=== PATIENT | male | born 2000 | race Caucasian/White ===

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

== ENCOUNTER 2021-11-25 17:27 | Emergency (ER) | payer OTHER ==
[~2021-11-25] VITALS: Ht 182.9 cm; Wt 77.3 kg
[2021-11-25 18:00] LABS: HEMATOCRIT 47.9 % (42.0-52.0); HEMOGLOBIN 15.8 g/dl (13.5-17.5); MEAN CORPUSCULAR HEMOGLOBIN 30.4 pg (27.0-33.0); MEAN CORPUSCULAR VOLUME 92.3 fl (80.0-96.0); PLATELET COUNT, AUTOMATED 233 10^3/uL (150-450); RED BLOOD COUNT 5.19 10^6/uL (4.30-6.10); WHITE BLOOD COUNT 6.2 10^3/uL (4.0-10.0)
[2021-11-25 18:15] LABS: AMPHETAMINES LEVEL URINE NEGATIVE (NEGATIVE); BARBITURATES URINE NEGATIVE (NEGATIVE); BENZODIAZEPINES URINE NEGATIVE (NEGATIVE); CANNABINOIDS URINE NEGATIVE (NEGATIVE); COCAINE METABOLITE URINE NEGATIVE (NEGATIVE); METHADONE URINE NEGATIVE (NEGATIVE); OPIATES URINE NEGATIVE (NEGATIVE); PHENCYCLIDINE URINE NEGATIVE (NEGATIVE)
[2021-11-25 18:30] LABS: ACETAMINOPHEN LEVEL < 2.0 UG/ML (10.0-30.0); ALBUMIN 4.1 GM/DL (3.2-5.2); ALT/SGPT 20 U/L (12-78); BILIRUBIN,DIRECT 0.1 MG/DL (0.0-0.2); BILIRUBIN,TOTAL 0.3 MG/DL (0.2-1.0); BLOOD UREA NITROGEN 10 MG/DL (7-18); CARBON DIOXIDE LEVEL 33 MEQ/L (21-32); CHLORIDE LEVEL 110 MEQ/L (98-107); CREATININE FOR GFR 0.93 MG/DL (0.70-1.30); ETHYL ALCOHOL (ETHANOL) < 0.003 % (0.000-0.010); GLUCOSE, FASTING 74 MG/DL (70-100); POTASSIUM SERUM 4.4 MEQ/L (3.5-5.1); SALICYLATE LEVEL < 1.7 MG/DL (5.0-30.0); SODIUM LEVEL 144 MEQ/L (136-145); TOTAL PROTEIN 7.6 GM/DL (6.4-8.2)
[2021-11-25] MEDS ORDERED: HOME MED LIST COMPLETE! XX SCH (18:45)
[2021-11-25 19:04] LABS: RSV AMPLIFICATION NEGATIVE (NEGATIVE)
[2021-11-27 10:52] VITALS: BP 133/74
== END 2021-11-27 11:09 ==
LOC: M ED 17:27
DX: R45.851 Suicidal ideations (principal); Z87.891 Personal history of nicotine dependence; R00.1 Bradycardia, unspecified

== ENCOUNTER 2021-12-25 07:05 | Emergency (ER) | payer OTHER ==
[~2021-12-25] VITALS: Ht 185.4 cm; Wt 77.3 kg
[2021-12-25] MEDS ORDERED: TRAZ-252 PO (07:16)
[2021-12-25] MEDS ORDERED: SERT50TA29 PO (07:16)
[2021-12-25 08:36] LABS: HEMATOCRIT 47.5 % (42.0-52.0); HEMOGLOBIN 15.7 g/dl (13.5-17.5); MEAN CORPUSCULAR HEMOGLOBIN 30.2 pg (27.0-33.0); MEAN CORPUSCULAR HGB CONC 33.1 g/dl (32.0-36.5); MEAN CORPUSCULAR VOLUME 91.3 fl (80.0-96.0); PLATELET COUNT, AUTOMATED 293 10^3/uL (150-450); WHITE BLOOD COUNT 6.2 10^3/uL (4.0-10.0)
[2021-12-25 09:08] LABS: AMPHETAMINES LEVEL URINE NEGATIVE (NEGATIVE); BARBITURATES URINE NEGATIVE (NEGATIVE); BENZODIAZEPINES URINE NEGATIVE (NEGATIVE); CANNABINOIDS URINE NEGATIVE (NEGATIVE); COCAINE METABOLITE URINE NEGATIVE (NEGATIVE); METHADONE URINE NEGATIVE (NEGATIVE); OPIATES URINE NEGATIVE (NEGATIVE); PHENCYCLIDINE URINE NEGATIVE (NEGATIVE)
[2021-12-25 09:22] LABS: RSV AMPLIFICATION NEGATIVE (NEGATIVE)
[2021-12-25 09:25] LABS: ACETAMINOPHEN LEVEL < 2.0 UG/ML (10.0-30.0); ALBUMIN 3.7 GM/DL (3.2-5.2); ALT/SGPT 20 U/L (12-78); BILIRUBIN,DIRECT 0.1 MG/DL (0.0-0.2); BILIRUBIN,TOTAL 0.4 MG/DL (0.2-1.0); BLOOD UREA NITROGEN 11 MG/DL (7-18); CALCIUM LEVEL 9.4 MG/DL (8.5-10.1); CARBON DIOXIDE LEVEL 28 MEQ/L (21-32); CHLORIDE LEVEL 105 MEQ/L (98-107); CREATININE FOR GFR 0.73 MG/DL (0.70-1.30); ETHYL ALCOHOL (ETHANOL) < 0.003 % (0.000-0.010); GLUCOSE, FASTING 83 MG/DL (70-100); POTASSIUM SERUM 4.4 MEQ/L (3.5-5.1); SALICYLATE LEVEL < 1.7 MG/DL (5.0-30.0); SODIUM LEVEL 138 MEQ/L (136-145); THYROID STIMULATING HORMONE 0.452 uIU/ML (0.463-3.98); TOTAL PROTEIN 7.1 GM/DL (6.4-8.2)
[2021-12-25] MEDS ORDERED: HYDR-3363 PO (12:12)
[2021-12-25] MEDS ORDERED: HOME MED LIST COMPLETE! XX SCH (12:15)
[2021-12-25 22:53] VITALS: BP 120/63
== END 2021-12-25 23:24 ==
LOC: M ED 07:05
DX: F43.0 Acute stress reaction (principal); R00.1 Bradycardia, unspecified; F32.A Depression, unspecified; Z87.891 Personal history of nicotine dependence; Z79.899 Other long term (current) drug therapy

== ENCOUNTER 2022-01-22 07:18 | Inpatient (IN) | payer OTHER ==
[~2022-01-22] VITALS: Ht 182.9 cm; Wt 77.2 kg
[~2022-01-22 07:18] MED LIST: HYDR-3363 PO; SERT50TA29 PO; TRAZ-252 PO
[2022-01-22 08:33] LABS: HEMATOCRIT 46.9 % (42.0-52.0); HEMOGLOBIN 15.2 g/dl (13.5-17.5); MEAN CORPUSCULAR HEMOGLOBIN 30.7 pg (27.0-33.0); MEAN CORPUSCULAR HGB CONC 32.4 g/dl (32.0-36.5); MEAN CORPUSCULAR VOLUME 94.7 fl (80.0-96.0); PLATELET COUNT, AUTOMATED 198 10^3/uL (150-450); RED BLOOD COUNT 4.95 10^6/uL (4.30-6.10); WHITE BLOOD COUNT 5.7 10^3/uL (4.0-10.0)
[2022-01-22 08:58] LABS: AMPHETAMINES LEVEL URINE NEGATIVE (NEGATIVE); BARBITURATES URINE NEGATIVE (NEGATIVE); BENZODIAZEPINES URINE NEGATIVE (NEGATIVE); CANNABINOIDS URINE NEGATIVE (NEGATIVE); COCAINE METABOLITE URINE NEGATIVE (NEGATIVE); METHADONE URINE NEGATIVE (NEGATIVE); OPIATES URINE NEGATIVE (NEGATIVE); PHENCYCLIDINE URINE NEGATIVE (NEGATIVE)
[2022-01-22 09:00] LABS: RSV AMPLIFICATION NEGATIVE (NEGATIVE)
[2022-01-22 09:12] LABS: ACETAMINOPHEN LEVEL < 2.0 UG/ML (10.0-30.0); ALBUMIN 3.7 GM/DL (3.2-5.2); ALT/SGPT 15 U/L (12-78); BILIRUBIN,DIRECT 0.1 MG/DL (0.0-0.2); BILIRUBIN,TOTAL 0.3 MG/DL (0.2-1.0); BLOOD UREA NITROGEN 14 MG/DL (7-18); CALCIUM LEVEL 9.3 MG/DL (8.5-10.1); CARBON DIOXIDE LEVEL 31 MEQ/L (21-32); CHLORIDE LEVEL 108 MEQ/L (98-107); CREATININE FOR GFR 0.78 MG/DL (0.70-1.30); ETHYL ALCOHOL (ETHANOL) < 0.003 % (0.000-0.010); GLUCOSE, FASTING 82 MG/DL (70-100); POTASSIUM SERUM 4.1 MEQ/L (3.5-5.1); SALICYLATE LEVEL < 1.7 MG/DL (5.0-30.0); SODIUM LEVEL 143 MEQ/L (136-145); TOTAL PROTEIN 6.9 GM/DL (6.4-8.2)
[2022-01-22] MEDS ORDERED: HYDR-3363 PO (16:34)
[2022-01-22] MEDS ORDERED: CHOL100012 PO (16:34)
[2022-01-22] MEDS ORDERED: HOME MED LIST COMPLETE! XX SCH (16:35)
[2022-01-22] MEDS ORDERED: traZODone 50 MG TAB PO SCH (21:00)
[2022-01-23] MEDS ORDERED: SERTRALINE HCL 25 MG TABLET PO SCH (09:00)
[2022-01-23] MEDS ORDERED: VITAMIN D 1,000 INTERNATIONAL UNITS TABLET PO SCH (09:00)
[2022-01-23] MEDS ORDERED: MAALOX 30 ML SUSP *UDC PO PRN (12:45)
[2022-01-23] MEDS ORDERED: traZODone 50 MG TAB PO PRN (12:45)
[2022-01-23] MEDS ORDERED: diphenhydrAMINE 25MG CAP PO PRN (12:45)
[2022-01-23] MEDS ORDERED: MOM 30ML SUSPENSION UDC PO PRN (12:45)
[2022-01-23] MEDS ORDERED: IBUPROFEN 400MG TAB PO PRN (12:45)
[2022-01-23] MEDS: NICOTINE 21MG/24HR 1 EA TRANSDERMAL TD SCH (17:47)
[2022-01-23] MEDS: traZODone 50 MG TAB PO PRN (23:20)
[2022-01-24 06:36] VITALS: BP 111/55
[2022-01-24] MEDS: NICOTINE 21MG/24HR 1 EA TRANSDERMAL TD SCH (08:32)
[2022-01-24] MEDS: VITAMIN D 1,000 INTERNATIONAL UNITS TABLET PO SCH (08:32)
[2022-01-24] MEDS ORDERED: SERTRALINE HCL 25 MG TABLET PO SCH (09:00)
[2022-01-24 18:20] VITALS: BP 142/67
[2022-01-24] MEDS: ARIPiprazole 2 MG TAB PO SCH (22:21)
[2022-01-24] MEDS: traZODone 50 MG TAB PO PRN (22:22)
[2022-01-25 06:33] VITALS: BP 115/59
[2022-01-25 07:30] LABS: CHOLESTEROL RISK RATIO 3.1 (<5)
[2022-01-25] MEDS: VENLAFAXINE **XR** 37.5 MG CAPSULE PO SCH (08:44)
[2022-01-25] MEDS: VITAMIN D 1,000 INTERNATIONAL UNITS TABLET PO SCH (08:45)
[2022-01-25] MEDS: NICOTINE 21MG/24HR 1 EA TRANSDERMAL TD SCH (08:45)
[2022-01-25] MEDS: DICLOFENAC EPOLAMINE 1.3 % PATCH TOP SCH ×2 (12:16→21:00)
[2022-01-25 18:37] VITALS: BP 132/72
[2022-01-25] MEDS: traZODone 50 MG TAB PO PRN (21:37)
[2022-01-25] MEDS: ARIPiprazole 2 MG TAB PO SCH (21:37)
[2022-01-26 06:53] VITALS: BP 120/59
[2022-01-26] MEDS: DICLOFENAC EPOLAMINE 1.3 % PATCH TOP SCH ×2 (08:35→21:00)
[2022-01-26] MEDS: VITAMIN D 1,000 INTERNATIONAL UNITS TABLET PO SCH (08:35)
[2022-01-26] MEDS: NICOTINE 21MG/24HR 1 EA TRANSDERMAL TD SCH (08:36)
[2022-01-26] MEDS: VENLAFAXINE **XR** 37.5 MG CAPSULE PO SCH (08:36)
[2022-01-26 18:00] VITALS: BP 138/80
[2022-01-26] MEDS: ARIPiprazole 2 MG TAB PO SCH (21:37)
[2022-01-26] MEDS: traZODone 50 MG TAB PO PRN (21:37)
[2022-01-27 06:46] VITALS: BP 102/53
[2022-01-27] MEDS: VENLAFAXINE **XR** 37.5 MG CAPSULE PO SCH (08:12)
[2022-01-27] MEDS: NICOTINE 21MG/24HR 1 EA TRANSDERMAL TD SCH (08:13)
[2022-01-27] MEDS: VITAMIN D 1,000 INTERNATIONAL UNITS TABLET PO SCH (08:13)
[2022-01-27] MEDS: DICLOFENAC EPOLAMINE 1.3 % PATCH TOP SCH ×2 (08:13→21:00)
[2022-01-27 18:00] VITALS: BP 136/71
[2022-01-27] MEDS: ARIPiprazole 2 MG TAB PO SCH (21:10)
[2022-01-27] MEDS: IBUPROFEN 400MG TAB PO PRN (21:10)
[2022-01-27] MEDS: traZODone 50 MG TAB PO PRN (21:10)
[2022-01-28 07:07] VITALS: BP 99/52
[2022-01-28] MEDS: NICOTINE 21MG/24HR 1 EA TRANSDERMAL TD SCH (07:35)
[2022-01-28] MEDS: DICLOFENAC EPOLAMINE 1.3 % PATCH TOP SCH ×2 (07:36→21:00)
[2022-01-28] MEDS: VENLAFAXINE **XR** 37.5 MG CAPSULE PO SCH (07:37)
[2022-01-28] MEDS: VITAMIN D 1,000 INTERNATIONAL UNITS TABLET PO SCH (07:37)
[2022-01-28] MEDS: IBUPROFEN 400MG TAB PO PRN (12:43)
[2022-01-28 16:18] VITALS: BP 122/64
[2022-01-28] MEDS: traZODone 50 MG TAB PO PRN (21:57)
[2022-01-28] MEDS: ARIPiprazole 2 MG TAB PO SCH (21:57)
[2022-01-29 06:35] VITALS: BP 104/52
[2022-01-29] MEDS: DICLOFENAC EPOLAMINE 1.3 % PATCH TOP SCH (08:45)
[2022-01-29] MEDS: NICOTINE 21MG/24HR 1 EA TRANSDERMAL TD SCH (08:45)
[2022-01-29] MEDS: VENLAFAXINE **XR** 37.5 MG CAPSULE PO SCH (08:46)
[2022-01-29] MEDS: VITAMIN D 1,000 INTERNATIONAL UNITS TABLET PO SCH (08:46)
[2022-01-29] MEDS ORDERED: TRAZ-252 PO (09:42)
[2022-01-29] MEDS ORDERED: ABIL1TAB13 PO (09:42)
[2022-01-29] MEDS ORDERED: VENL37.598 PO (09:42)
[2022-01-29] MEDS ORDERED: NICO21PAT TD (09:42)
== END 2022-01-29 13:27 | disposition home or self-care (01) | DRG 885 ==
LOC: M ED 07:18 → M ED INP 01-23 12:44 → M PSY 01-23 15:13
PROVIDERS: ADMIT Student in an Organized Health Care Education/Training Program; ATTEND Student in an Organized Health Care Education/Training Program
DX: F33.1 Major depressive disorder, recurrent, moderate (principal); R45.851 Suicidal ideations; F43.10 Post-traumatic stress disorder, unspecified; F60.89 Other specific personality disorders; F17.210 Nicotine dependence, cigarettes, uncomplicated; F10.20 Alcohol dependence, uncomplicated; Z91.51 Personal history of suicidal behavior; Z20.822 Contact with and (suspected) exposure to COVID-19; S80.02XA Contusion of left knee, initial encounter; X58.XXXA Exposure to other specified factors, initial encounter; Y92.9 Unspecified place or not applicable

== ENCOUNTER 2022-03-13 10:17 | Emergency (ER) | payer OTHER ==
[~2022-03-13] VITALS: Ht 182.9 cm; Wt 78.6 kg
[~2022-03-13 10:17] MED LIST changes: +ABIL1TAB13 PO; +CHOL100012 PO; +NICO21PAT TD; +VENL37.598 PO
[2022-03-13] MEDS ORDERED: BUPR-70 PO (10:24)
[2022-03-13] MEDS ORDERED: NALT50TA4 PO (10:24)
[2022-03-13] MEDS ORDERED: ONDANSETRON 4MG ORAL DISINTEGRATING TAB PO ONE (13:05)
[2022-03-13] MEDS ORDERED: PANTOPRAZOLE 40MG TAB (PROTONIX) PO ONE (13:05)
[2022-03-13 13:33] LABS: BASO % 0.5 % (0.0-1.0); EOS % 0.5 % (0.0-3.0); HEMATOCRIT 48.1 % (42.0-52.0); HEMOGLOBIN 15.7 g/dl (13.5-17.5); LYMPH # 1.9 10^3/uL (1.5-5.0); LYMPH % 25.1 % (24.0-44.0); MEAN CORPUSCULAR HGB CONC 32.6 g/dl (32.0-36.5); MEAN CORPUSCULAR VOLUME 91.8 fl (80.0-96.0); MONO # 0.5 10^3/uL (0.0-0.8); MONO % 6.3 % (2.0-8.0); NEUTROPHILS # 5.2 10^3/uL (1.5-8.5); NEUTROPHILS % 67.3 % (36.0-66.0); PLATELET COUNT, AUTOMATED 225 10^3/uL (150-450); RED BLOOD COUNT 5.24 10^6/uL (4.30-6.10); WHITE BLOOD COUNT 7.7 10^3/uL (4.0-10.0)
[2022-03-13 14:02] LABS: ALBUMIN 4.6 GM/DL (3.2-5.2); ALT/SGPT 16 U/L (12-78); BILIRUBIN,DIRECT 0.2 MG/DL (0.0-0.2); BILIRUBIN,TOTAL 0.8 MG/DL (0.2-1.0); BLOOD UREA NITROGEN 12 MG/DL (7-18); CALCIUM LEVEL 9.6 MG/DL (8.5-10.1); CARBON DIOXIDE LEVEL 29 MEQ/L (21-32); CHLORIDE LEVEL 107 MEQ/L (98-107); CREATININE FOR GFR 0.95 MG/DL (0.70-1.30); GLUCOSE, FASTING 77 MG/DL (70-100); LIPASE 96 U/L (73-393); POTASSIUM SERUM 4.2 MEQ/L (3.5-5.1); SODIUM LEVEL 142 MEQ/L (136-145); TOTAL PROTEIN 7.6 GM/DL (6.4-8.2)
[2022-03-13] MEDS ORDERED: PROT1TAB2 PO (14:08)
[2022-03-13] MEDS ORDERED: ONDA4TAB6 PO (14:08)
[2022-03-13 14:27] VITALS: BP 121/75
== END 2022-03-13 14:29 | disposition home or self-care (01) ==
LOC: M ED 10:17
DX: K92.0 Hematemesis (principal); F41.9 Anxiety disorder, unspecified; F32.A Depression, unspecified; F10.20 Alcohol dependence, uncomplicated; Z79.899 Other long term (current) drug therapy

== ENCOUNTER 2022-04-13 22:49 | Emergency (ER) | payer OTHER ==
[~2022-04-13] VITALS: Ht 182.9 cm; Wt 78.7 kg
[~2022-04-13 22:49] MED LIST changes: +BUPR-70 PO; +NALT50TA4 PO; +ONDA4TAB6 PO; +PROT1TAB2 PO
[2022-04-14 00:36] LABS: HEMATOCRIT 47.4 % (42.0-52.0); HEMOGLOBIN 15.3 g/dl (13.5-17.5); MEAN CORPUSCULAR HGB CONC 32.3 g/dl (32.0-36.5); MEAN CORPUSCULAR VOLUME 92.9 fl (80.0-96.0); PLATELET COUNT, AUTOMATED 226 10^3/uL (150-450); WHITE BLOOD COUNT 7.1 10^3/uL (4.0-10.0)
[2022-04-14 01:11] LABS: RSV AMPLIFICATION NEGATIVE (NEGATIVE)
[2022-04-14 01:14] LABS: AMPHETAMINES LEVEL URINE NEGATIVE (NEGATIVE); BARBITURATES URINE NEGATIVE (NEGATIVE); BENZODIAZEPINES URINE NEGATIVE (NEGATIVE); CANNABINOIDS URINE NEGATIVE (NEGATIVE); COCAINE METABOLITE URINE NEGATIVE (NEGATIVE); METHADONE URINE NEGATIVE (NEGATIVE); OPIATES URINE NEGATIVE (NEGATIVE); PHENCYCLIDINE URINE NEGATIVE (NEGATIVE)
[2022-04-14 01:31] LABS: ACETAMINOPHEN LEVEL < 2.0 UG/ML (10.0-30.0); ALBUMIN 4.2 GM/DL (3.2-5.2); ALT/SGPT 20 U/L (12-78); BILIRUBIN,DIRECT 0.4 MG/DL (0.0-0.2); BILIRUBIN,TOTAL 0.3 MG/DL (0.2-1.0); BLOOD UREA NITROGEN 16 MG/DL (7-18); CARBON DIOXIDE LEVEL 28 MEQ/L (21-32); CHLORIDE LEVEL 106 MEQ/L (98-107); CREATININE FOR GFR 0.88 MG/DL (0.70-1.30); ETHYL ALCOHOL (ETHANOL) < 0.003 % (0.000-0.010); GLUCOSE, FASTING 88 MG/DL (70-100); POTASSIUM SERUM 4.3 MEQ/L (3.5-5.1); SALICYLATE LEVEL < 1.7 MG/DL (5.0-30.0); SODIUM LEVEL 138 MEQ/L (136-145); TOTAL PROTEIN 6.9 GM/DL (6.4-8.2)
[2022-04-14] MEDS ORDERED: TRAZ-252 PO (02:25)
[2022-04-14 03:13] VITALS: BP 109/56
== END 2022-04-14 03:19 | disposition home or self-care (01) ==
LOC: M ED 22:49
DX: F43.9 Reaction to severe stress, unspecified (principal); F32.A Depression, unspecified; Z79.899 Other long term (current) drug therapy

== ENCOUNTER 2022-08-25 08:59 | Emergency (ER) | payer OTHER, SELFPAY ==
[~2022-08-25] VITALS: Ht 185.4 cm; Wt 75.5 kg
[2022-08-25] MEDS ORDERED: NS 1,000 ML IV ONE (09:20)
[2022-08-25] MEDS ORDERED: ONDANSETRON 4MG 2ML VIAL IV ONE (09:30)
[2022-08-25] MEDS ORDERED: MORPHINE 4 MG/ML 1ML VIAL IV ONE ×2 (09:30→13:25)
[2022-08-25 10:14] LABS: HEMATOCRIT 46.8 % (42.0-52.0); HEMOGLOBIN 15.6 g/dl (13.5-17.5); MEAN CORPUSCULAR HEMOGLOBIN 30.2 pg (27.0-33.0); MEAN CORPUSCULAR HGB CONC 33.3 g/dl (32.0-36.5); MEAN CORPUSCULAR VOLUME 90.7 fl (80.0-96.0); PLATELET COUNT, AUTOMATED 208 10^3/uL (150-450); RED BLOOD COUNT 5.16 10^6/uL (4.30-6.10); WHITE BLOOD COUNT 17.1 10^3/uL (4.0-10.0)
[2022-08-25 10:31] LABS: ATYPICAL LYMPH 4 % (0-5); BASOPHILS 1 % (0-1); EOSINOPHILS 3 % (0-3); LYMPHOCYTES 11 % (16-44); MONOCYTES 10 % (0-5); NEUTROPHILS 69 % (28-66)
[2022-08-25 10:34] LABS: PLATELET ESTIMATE NORMAL (NORMAL)
[2022-08-25 10:37] LABS: LIPASE 24 U/L (12-53)
[2022-08-25] MEDS ORDERED: ISOVUE-370 76% 100ML VIAL As Ordered ONE (10:38)
[2022-08-25 10:39] LABS: ALBUMIN 3.9 G/DL (3.2-5.2); ALKALINE PHOSPHATASE 47 U/L (46-116); ALT/SGPT 13 U/L (7.0-40); AST/SGOT 20 U/L (<34); BILIRUBIN,DIRECT 0.3 MG/DL (<0.4); BILIRUBIN,TOTAL 0.8 MG/DL (0.3-1.2); TOTAL PROTEIN 6.7 G/DL (5.7-8.2)
[2022-08-25 11:28] LABS: MONO REFLEX EBV COMP NEGATIVE (NEGATIVE)
[2022-08-25] MEDS ORDERED: FIDAXOMICIN 200 MG TAB (DIFICID) PO STA (13:15)
[2022-08-25] MEDS ORDERED: DIFI200T PO ×2 (13:17→13:28)
[2022-08-25] MEDS ORDERED: PERC5TAB12 PO (13:28)
[2022-08-25] MEDS ORDERED: ACETAMINOPHEN 500 MG TAB PO ONE (13:30)
[2022-08-25 13:45] VITALS: BP 115/64
[2022-08-28 17:07] LABS: EBV AB TO NUCLEAR ANTIGEN >600.0 U/mL (0.0-17.9); EBV VIRAL CAPSID AG IgM <36.0 U/mL (0.0-35.9)
== END 2022-08-25 14:34 | disposition home or self-care (01) ==
LOC: M ED 08:59
DX: A04.72 Enterocolitis due to Clostridium difficile, not specified as recurrent (principal); K21.9 Gastro-esophageal reflux disease without esophagitis; F41.9 Anxiety disorder, unspecified; F17.200 Nicotine dependence, unspecified, uncomplicated
CPT/HCPCS: 74177; 80047; 80076; 83690; 85025; 86308; 86664; 86665; 87428; 87507; 96374; 96375; 96376; 99284; J2405